=== PATIENT | male | born 1995 ===

== ENCOUNTER 2021-11-03 17:25 | Emergency (ER) | payer SELFPAY ==
[2021-11-03] MEDS ORDERED: CLINDAMYCIN 150 MG/ML VIAL 6 ML IM ONE (20:41)
--- NOTE | 2021-11-03 21:10 | XRay Report ---
RIGHT FEMUR, 4 VIEWS INDICATION / CLINICAL INFORMATION: pain. Possible bite to the mid femoral region. COMPARISON: None available. FINDINGS: No significant osseous abnormality. Mild soft tissue edema in the mid femoral soft tissues anteriorly but no focal mass or gas collection noted. IMPRESSION: Nonfocal soft tissue edema in the anterior mid thigh region. No significant osseous abnor mality. Signer Name: Ingris Hernandez MD Signed: 11/03/2021 9:05 PM Workstation Name: [id number]
[2021-11-03 21:42] LABS: Basophils # (Auto) 0.1 K/mm3 (0.0-0.1); Basophils % (Auto) 0.4 % (0.0-1.8); Eosinophils # (Auto) 0.5 K/mm3 (0.0-0.4); Eosinophils % (Auto) 3.8 % (0.0-4.3); Hematocrit 40.5 % (35.5-45.6); Hemoglobin 13.4 gm/dl (11.8-15.2); Lymphocytes # (Auto) 2.4 K/mm3 (1.2-5.4); Lymphocytes % (Auto) 19.3 % (13.4-35.0); Mean Corpuscular HGB Conc 33 % (32-34); Mean Corpuscular Volume 93 fl (84-94); Monocytes # (Auto) 0.8 K/mm3 (0.0-0.8); Monocytes % (Auto) 6.1 % (0.0-7.3); Platelet Count 293 K/mm3 (140-440); Red Blood Count 4.38 M/mm3 (3.65-5.03); Red Cell Distribution Width 14.5 % (13.2-15.2)
[2021-11-03 21:54] VITALS: BP 128/90
[2021-11-03 22:03] LABS: Alanine Aminotransferase 27 units/L (7-56); Albumin 3.4 g/dL (3.9-5); Blood Urea Nitrogen 15 mg/dL (9-20); Calcium 9.2 mg/dL (8.4-10.2); Hemolysis Index 6
[2021-11-03 22:11] LABS: BUN/Creatinine Ratio 25
--- NOTE | 2021-11-03 22:26 | Emergency Department Report ---
ED Lower Extremity HPI - General Chief Complaint: Extremity Injury, Lower Stated Complaint: INFECTION LT LEG Time Seen by Provider: 11/03/21 20:36 Source: patient Mode of arrival: Ambulatory Limitations: No Limitations - History of Present Illness Initial Comments: pt presents to ed [facility] complaint of left leg injury was seen in [facility] on [place] givinga bx but not better , no fever Complaint: thigh injury -: Sudden, days(s) (7) Injury: Thigh: Left Type of Injury: puncture wound Place: home Severity: moderate Severity scale (0 -10): 4 Improves With: NSAID - Related Data Previous Rx's Medication Instructions Recorded Last Taken Type clindamycin HCL [Clindamycin HCl] 300 mg PO TID #21 cap 11/03/21 Unknown Rx Allergies Allergy/AdvReac Type Severity Reaction Status Date / Time No Known Allergies Allergy Verified 11/03/21 17:33 ED Review of Systems ROS: Stated complaint: INFECTION LT LEG Other details as noted in HPI Constitutional: denies: chills, fever Eyes: denies: eye pain, eye discharge, vision change ENT: denies: ear pain, throat pain Respiratory: denies: cough, shortness of breath, wheezing Cardiovascular: denies: chest pain, palpitations Endocrine: no symptoms reported Gastrointestinal: denies: abdominal pain, nausea, diarrhea Genitourinary: denies: urgency, dysuria Musculoskeletal: denies: back pain, joint swelling, arthralgia Skin: denies: rash, lesions Neurological: denies: headache, weakness, paresthesias Psychiatric: denies: anxiety, depression Hematological/Lymphatic: denies: easy bleeding, easy bruising ED Past Medical Hx - Past Medical History Previous Medical History?: No Hx Hypertension: No Hx CVA: No - Social History Smoking Status: Never Smoker Substance Use Type: None - Medications Home Medications: Home Medications Medication Instructions Recorded Confirmed Last Taken Type clindamycin HCL [Clindamycin HCl] 300 mg PO TID #21 cap 11/03/21 Unknown Rx ED Physical Exam - General Limitations: No Limitations General appearance: alert, in no apparent distress - Head Head exam: Present: atraumatic, normocephalic - Eye Eye exam: Present: normal appearance - ENT ENT exam: Present: mucous membranes moist - Neck Neck exam: Present: normal inspection - Respiratory Respiratory exam: Present: normal lung sounds bilaterally. Absent: respiratory distress - Cardiovascular Cardiovascular Exam: Present: regular rate, normal rhythm. Absent: systolic murmur, diastolic murmur, rubs, gallop - GI/Abdominal GI/Abdominal exam: Present: soft, normal bowel sounds - Rectal Rectal exam: Present: deferred - Extremities Exam Extremities exam: Present: normal inspection - Expanded Lower Extremity Exam Left Upper Leg exam: Present: tenderness, swelling, erythema - Back Exam Back exam: Present: normal inspection - Neurological Exam Neurological exam: Present: alert, oriented X3 - Psychiatric Psychiatric exam: Present: normal affect, normal mood - Skin Skin exam: Present: warm, dry, intact, normal color. Absent: rash ED Course Vital Signs 11/03/21 11/03/21 17:33 21:11 Temperature 98.7 F 98.2 F Pulse Rate 81 77 Respiratory 18 20 Rate Blood Pressure 112/58 Blood Pressure 128/90 [Left] O2 Sat by Pulse 100 99 Oximetry ED Lower Extremity MDM - Lab Data Result diagrams: 11/03/21 21:10 11/03/21 21:10 - Medical Decision Making wbc 12 , no fever no tachycardia, not septic, spoke with dr weiner, will see him in office Critical care attestation.: If time is entered above; I have spent that time in minutes in the direct care of this critically ill patient, excluding procedure time. ED Disposition Clinical Impression: Cellulitis of left thigh Disposition: 01 HOME / SELF CARE / HOMELESS Is pt being admited?: No Does the pt Need Aspirin: No Condition: Stable Prescriptions: clindamycin HCL [Clindamycin HCl] 300 mg PO TID #21 cap Referrals: NAGA ALMANZAR MD [Primary Care Provider] - 3-5 Days ASIM WEINER MD [Staff Physician] - 3-5 Days
== END 2021-11-03 22:00 | disposition home or self-care (01) ==
LOC: ED 17:25
DX: L03.116 Cellulitis of left lower limb (principal)
CPT/HCPCS: 36415; 80053; 85025; 86140; 96372; 99283